=== PATIENT | male | born 1950 | race Caucasian/White ===

== ENCOUNTER 2016-12-20 11:29 | Day surgery (SDC) | payer OTHER, MEDICAID ==
[2016-12-20] MEDS ORDERED: MIDAZOLAM 2 MG/2 ML VIAL ONE (13:00)
[2016-12-20] MEDS ORDERED: LIDOCAINE 2% 5 ML SDV ONE (13:00)
[2016-12-20] MEDS ORDERED: PROPOFOL/EMULSION 500 MG/50 ML BOTTLE IV ONE (13:00)
--- NOTE | 2016-12-20 15:07 | GPN ---
[f rep st] PROCEDURE NOTE PROCEDURE PERFORMED: Colonoscopy with polypectomy. INDICATIONS: The patient is a 66-year-old male who has positive Hemoccult. [facility] PROCEDURE: After proper consent was obtained, the patient was placed in the left lateral decubitus position, received IV general anesthesia due to his ASA class of III. Video colonoscope was introduced through the anus and rectum, up the left colon, across the transver se colon, then right colon and the cecum. Findings are as follows: 1. A 10 mm polyp at 30 cm was removed with hot snare. 2. No other polyps, tumors or lesions noted. At this point, instrument was removed. The patient tolerated procedure well, and was returned to [facility] recovery room in stable condition. RECOMMENDATIONS: I will follow up on biopsy report and recommend accordingly. /[id number]/MODL
== END 2016-12-20 14:53 | disposition home or self-care (01) ==
LOC: FSGY 11:29
PROVIDERS: ATTEND Internal Medicine Gastroenterology
PROC: 0DBM8ZX Excision of Descending Colon, Via Natural or Artificial Opening Endoscopic, Diagnostic (ICD-10-PCS; principal; 2016-12-20 13:00)
DX: D12.4 Benign neoplasm of descending colon (principal); R19.5 Other fecal abnormalities; F20.9 Schizophrenia, unspecified; Z85.46 Personal history of malignant neoplasm of prostate
CPT/HCPCS: J2250; J2704

== ENCOUNTER → 2018-01-15 | Outpatient (CLI) | payer OTHER, MEDICAID | LOC: BHFA 12:45 | PROVIDERS: ATTEND Internal Medicine Cardiovascular Disease | DX: I49.9 Cardiac arrhythmia, unspecified (principal) ==

== ENCOUNTER → 2018-01-28 | Outpatient (CLI) | payer OTHER, MEDICAID | LOC: BHFA 13:00 | PROVIDERS: ATTEND Internal Medicine Cardiovascular Disease | DX: R00.2 Palpitations (principal) ==